=== PATIENT | male | born 1935 | race Caucasian/White ===

== ENCOUNTER 2019-12-15 15:42 | Emergency (ER) | payer MEDICARE, OTHER ==
[~2019-12-15] VITALS: Ht 172.7 cm; Wt 85.7 kg
[~2019-12-15 15:42] MED LIST: ALTACE10 MG PO; COUMADIN2 MG PO; DILTIAZEM 24HR180 MG PO; ECOTRIN325 MG PO; MAXZIDE 37.5 MG-1 EA PO
[2019-12-15] MEDS ORDERED: KEFLEX500 MG PO (17:54)
--- NOTE | 2019-12-16 12:26 | EKG ---
[facility] [address] [facility] [place], [place] [address] Signed Junctional bradycardia Abnormal ECG No previous ECGs available Confirmed by DENISSE CABRERA MD ([id number] on 12/16/2019 12:26:20 PM Electronically Signed By: DENISSE CABRERA MD 12/16/19 1226 PATIENT NAME: TREVOR SWAIN Electrocardiogram DATE OF : 37 PHYSICIAN: DENISSE CABRERA MD REPORT #: [id number] REPORT IS CONFIDENTIAL AND NOT TO BE RELEASED WITHOUT AUTHORIZATION
== END 2019-12-15 18:35 | disposition home or self-care (01) ==
LOC: ED 15:42
DX: N39.0 Urinary tract infection, site not specified (principal); Z86.73 Personal history of transient ischemic attack (TIA), and cerebral infarction without residual deficits; I10 Essential (primary) hypertension; Z87.891 Personal history of nicotine dependence; Z79.899 Other long term (current) drug therapy; Z79.01 Long term (current) use of anticoagulants
CPT/HCPCS: 70450; 71045; 80053; 81001; 84484; 85025; 93005; 93010; 96365; 99285-25; J0696